=== PATIENT | female | born 1990 | race Caucasian/White ===

== ENCOUNTER → 2016-07-16 | Outpatient (CLI) | payer OTHER ==
[~2016-07-16] MED LIST: CHOLCAP5 PO; HYDR-5688 PO; ONDA4TAB10 SL; WARF-246 PO; WARF5TAB7 PO
[2016-07-16 17:25] LABS: BASO % 0.8 %; BASO ABS # 0.07 K/uL (0-0.2); COMPLETE YES; EOS % 3.1 %; HEMATOCRIT 43.8 % (37-47); IG% 0.1 %; LYMPH % 31.3 %; MEAN CELL VOLUME 86.1 fL (80-100); MEAN CORPUSCULAR HEMOGLOBIN 29.9 pg (25-34); MEAN CORPUSCULAR HGB CONC 34.7 g/dl (32-36); MEAN PLATELET VOLUME 12.8 fL (7.4-10.4); NEUT % 57.7 %; PLATELET COUNT 154 K/uL (130-400); RED BLOOD COUNT 5.09 M/uL (4.2-5.4); WHITE BLOOD COUNT 8.62 K/uL (4.8-10.8)
[2016-07-16 17:38] LABS: INR 2.1 (0.9-1.1); PROTHROMBIN TIME (PATIENT) 23.2 SECONDS (9.0-12.0)
== END | disposition home or self-care (01) ==
LOC: C.LABPVFM 14:42
PROVIDERS: ATTEND Family Medicine
DX: N92.0 Excessive and frequent menstruation with regular cycle (principal)

== ENCOUNTER 2016-07-22 20:21 | Emergency (ER) | payer OTHER ==
[~2016-07-22] VITALS: Ht 165.1 cm; Wt 92.3 kg
[2016-07-22 20:28] VITALS: TEMP 36.8; Ht 165.1 cm; Wt 92.3 kg
[2016-07-22] MEDS ORDERED: MoRPHine SULFATE 10 MG/ML CARP/VIAL IV STA (20:47)
[2016-07-22] MEDS ORDERED: ONDANSETRON INJ 2 MG/ML 2 ML VIAL IV STA (20:47)
[2016-07-22] MEDS ORDERED: SODIUM CHLORIDE 0.9% 1000ML 1,000 ML IV STA (20:47)
[2016-07-22] MEDS ORDERED: WARF-246 PO (20:54)
[2016-07-22] MEDS ORDERED: WARF5TAB7 PO (20:58)
[2016-07-22] MEDS ORDERED: CHOLCAP5 PO (21:06)
[2016-07-22] MEDS ORDERED: MoRPHine SULFATE 2 MG/ML CARP ONE (21:23)
[2016-07-22] MEDS ORDERED: MoRPHine SULFATE 4 MG/ML 1 ML CARP\\VIAL ONE (21:23)
[2016-07-22 21:34] LABS: BASO % 0.7 %; BASO ABS # 0.06 K/uL (0-0.2); COMPLETE YES; EOS % 4.9 %; HEMATOCRIT 42.2 % (37-47); IG% 0.2 %; LYMPH % 36.7 %; LYMPH ABS # 3.23 K/uL (1.2-3.4); MEAN CELL VOLUME 86.8 fL (80-100); MEAN CORPUSCULAR HEMOGLOBIN 30.9 pg (25-34); MEAN CORPUSCULAR HGB CONC 35.5 g/dl (32-36); MEAN PLATELET VOLUME 12.7 fL (7.4-10.4); MONO % 7.1 %; NEUT % 50.4 %; PLATELET COUNT 142 K/uL (130-400); RED BLOOD COUNT 4.86 M/uL (4.2-5.4); WHITE BLOOD COUNT 8.79 K/uL (4.8-10.8)
[2016-07-22 21:52] LABS: BUN/CREATININE RATIO 7.3 (10-20); CALCIUM 8.8 mg/dl (8.5-10.1); CREATININE 0.77 mg/dl (0.60-1.20)
[2016-07-22 21:54] LABS: MANUAL MICROSCOPIC REQUIRED? NO; REVIEW REQ? NO; URINE APPEARANCE CLEAR (CLEAR); URINE BILIRUBIN NEG (NEG); URINE COLOR YELLOW; URINE EPITHELIAL CELL AUTO >30 /lpf (0-5); URINE NITRITE NEG (NEG); URINE PH 8.5 (4.5-7.5); UROBILINOGEN NEG (NEG); ZZUR CULT IF INDIC CLEAN CATCH YES
[2016-07-22 21:55] LABS: ALB/GLOB RATIO 1.1 (0.9-2)
--- NOTE | 2016-07-22 22:20 | DIAGNOSTIC IMAGING REPORT ---
BILIARY ULTRASOUND CLINICAL HISTORY: Right upper quadrant pain and vomiting COMPARISON STUDY: The second 2012 FINDINGS: The pancreas appears sonographically normal. The liver appears sonographically normal. There is no right-sided hydronephrosis. The gallbladder appears sonographically normal. There is no ductal dilatation. The common bile duct measures 3 mm. IMPRESSION: Normal biliary ultrasound Electronically signed by: Bravo Carter M.D. 07/22/2016 10:18 PM Dictated Date/Time: 07/22/2016 10:17 PM
[2016-07-22] MEDS ORDERED: OPTIRAY 320 IV PRN (22:45)
[2016-07-22] MEDS ORDERED: ONDA4TAB10 SL (23:47)
--- NOTE | 2016-07-22 23:47 | EMERGENCY ROOM VISIT NOTE ---
History First contact with patient: 20:41 Chief Complaint: ABDOMINAL PAIN Stated Complaint: RUQ PAIN Nursing Triage Summary: Right abdominal pain with vomitting. Denies fever. Denies diarrhea. History of Present Illness The patient is a 26 year old female who presents to the Emergency Room with complaints of right-sided abdominal pain and vomiting. The patient reports that she has had right upper abdominal pain which began this morning. She has had 2 associated episodes of vomiting. She reports the pain has been gradually worsening throughout the day. She has had a few episodes of pain over the past few days, but did not have vomiting with these and states that the symptoms resolved without treatment. She rates her current discomfort in 01/30. She denies any alleviating or aggravating factors. She has not taken any medications for his symptoms. She denies any history of abdominal surgery. She denies chest pain, shortness of breath, changes in bowel movements, blood in her stools or urinary symptoms. Review of Systems A complete 10-point Review of Systems was discussed with the patient, with pertinent positives and negatives listed in the History of Present Illness. All remaining Review of Systems questions can be considered negative unless otherwise specified. Past Medical/Surgical History Medical Problems: (1) ACUTE BRONCHITIS (2) Acute bronchitis (3) Allergic contact dermatitis (4) Asthma (5) Chest pain (6) Foot pain, right Family History Cancer Diabetes mellitus FH: heart disease Social History Smoking Status: Current Every Day Smoker Alcohol Use: none Drug Use: none Marital Status: single Housing Status: lives with family Occupation Status: unemployed Current/Historical Medications Scheduled Cholecalciferol (Vitamin D3), 5,000 INTER.UNIT PO DAILY Ondasetron Odt (Zofran Odt), 4 MG SL Q6H Warfarin Sod (Jantoven), 10 MG PO 5XD Warfarin Sodium (Warfarin Sodium), 15 MG PO 2XWK Allergies Coded Allergies: No Known Allergies (Unverified , 01/03/16) Physical Exam Vital Signs Date Time Temp Pulse Resp B/P Pulse Ox O2 Delivery O2 Flow Rate FiO2 07/22/16 23:00 65 150/89 96 Room Air 07/22/16 20:28 36.8 93 16 125/74 97 Room Air Physical Exam VITALS: Vitals are noted on the nurse's note and reviewed by myself. Vital signs stable. GENERAL: This is a 26-year-old female, in no acute distress, nondiaphoretic, well-developed well-nourished. SKIN: Capillary reflex less than 2 seconds. HEENT: Normocephalic. PERRLA. EOMI. Nares patent. Mucous membranes moist. Neck is supple without nuchal rigidity. HEART: Regular rate and rhythm without murmurs gallops or rubs. LUNGS: Clear to auscultation bilaterally without wheezes, rales or rhonchi. ABDOMEN: Positive bowel sounds x 4. Moderate right upper quadrant tenderness to palpation. Negative Simmons sign. No guarding or rebound tenderness. NEURO: Patient was alert and oriented to person place and time. Medical Decision & Procedures ER Provider Diagnostic Interpretation: BILIARY ULTRASOUND FINDINGS: The pancreas appears sonographically normal. The liver appears sonographically normal. There is no right-sided hydronephrosis. The gallbladder appears sonographically normal. There is no ductal dilatation. The common bile duct measures 3 mm. IMPRESSION: Normal biliary ultrasound CT ABDOMEN and PELVIS: Collapsed follicle in the right ovary. Small amount of fluid in the pelvis. Unremarkable appendix. No colitis. No hydronephrosis or perinephric collections. Tiny left renal stone. No radiodense gallstones or pancreatitis. Radiologist: Billy Fiore M.D. Laboratory Results 07/22/16 21:10 Red Blood Count 4.86, Mean Corpuscular Volume 86.8, Mean Corpuscular Hemoglobin 30.9, Mean Corpuscular Hemoglobin Concent 35.5, Mean Platelet Volume 12.7, Neutrophils (%) (Auto) 50.4, Lymphocytes (%) (Auto) 36.7, Monocytes (%) (Auto) 7.1, Eosinophils (%) (Auto) 4.9, Basophils (%) (Auto) 0.7, Neutrophils # (Auto) 4.43, Lymphocytes # (Auto) 3.23, Monocytes # (Auto) 0.62, Eosinophils # (Auto) 0.43, Basophils # (Auto) 0.06 07/22/16 21:10 Test 07/22/16 21:10 07/22/16 21:25 White Blood Count 8.79 K/uL (4.8-10.8) Red Blood Count 4.86 M/uL (4.2-5.4) Hemoglobin 15.0 g/dL (12.0-16.0) Hematocrit 42.2 % (37-47) Mean Corpuscular Volume 86.8 fL (80-100) Mean Corpuscular Hemoglobin 30.9 pg (25-34) Mean Corpuscular Hemoglobin Concent 35.5 g/dl (32-36) Platelet Count 142 K/uL (130-400) Mean Platelet Volume 12.7 fL (7.4-10.4) Neutrophils (%) (Auto) 50.4 % Lymphocytes (%) (Auto) 36.7 % Monocytes (%) (Auto) 7.1 % Eosinophils (%) (Auto) 4.9 % Basophils (%) (Auto) 0.7 % Neutrophils # (Auto) 4.43 K/uL (1.4-6.5) Lymphocytes # (Auto) 3.23 K/uL (1.2-3.4) Monocytes # (Auto) 0.62 K/uL (0.11-0.59) Eosinophils # (Auto) 0.43 K/uL (0-0.5) Basophils # (Auto) 0.06 K/uL (0-0.2) RDW Standard Deviation 39.8 fL (36.4-46.3) RDW Coefficient of Variation 12.4 % (11.5-14.5) Immature Granulocyte % (Auto) 0.2 % Immature Granulocyte # (Auto) 0.02 K/uL (0.00-0.02) Anion Gap 11.0 mmol/L (3-11) Est Creatinine Clear Calc Drug Dose 126.5 ml/min Estimated GFR () 125.3 Estimated GFR (Non- 108.1 BUN/Creatinine Ratio 7.3 (10-20) Calcium Level 8.8 mg/dl (8.5-10.1) Total Bilirubin 0.2 mg/dl (0.2-1) Aspartate Amino Transf (AST/SGOT) 14 U/L (15-37) Alanine Aminotransferase (ALT/SGPT) 23 U/L (12-78) Alkaline Phosphatase 74 U/L (45-117) Total Protein 7.3 gm/dl (6.4-8.2) Albumin 3.8 gm/dl (3.4-5.0) Globulin 3.5 gm/dl (2.5-4.0) Albumin/Globulin Ratio 1.1 (0.9-2) Lipase 181 U/L (73-393) Urine Color YELLOW Urine Appearance CLEAR (CLEAR) Urine pH 8.5 (4.5-7.5) Urine Specific Pollock 1.010 (1.000-1.030) Urine Protein NEG (NEG) Urine Glucose (UA) NEG (NEG) Urine Ketones NEG (NEG) Urine Occult Blood NEG (NEG) Urine Nitrite NEG (NEG) Urine Bilirubin NEG (NEG) Urine Urobilinogen NEG (NEG) Urine Leukocyte Esterase MODERATE (NEG) Urine WBC (Auto) 5-10 /hpf (0-5) Urine RBC (Auto) 0-4 /hpf (0-4) Urine Hyaline Casts (Auto) 0 /lpf (0-5) Urine Epithelial Cells (Auto) >30 /lpf (0-5) Urine Bacteria (Auto) 1+ (NEG) Urine Test NEG (NEG) Medications Administered Medications (Trade) Dose Ordered Sig/Elma Route Start Time Stop Time Status Last Admin Dose Admin Sodium Chloride (Nss 1000ml) 1,000 ml @ 999 mls/hr Q1H1M STAT IV 07/22/16 20:47 07/22/16 21:47 DC 07/22/16 21:21 999 MLS/HR Ondansetron HCl (Zofran Inj) 4 mg NOW STAT IV 07/22/16 20:47 07/22/16 20:49 DC 07/22/16 21:29 4 MG Morphine Sulfate (MoRPHine SULFATE INJ) 4 mg STK-MED ONCE .ROUTE 07/22/16 21:23 07/22/16 21:24 DC 07/22/16 21:29 4 MG Morphine Sulfate (MoRPHine SULFATE INJ) 2 mg STK-MED ONCE .ROUTE 07/22/16 21:23 07/22/16 21:25 DC 07/22/16 21:29 2 MG Medical Decision Differential diagnosis includes cholecystitis, appendicitis, gastritis, colitis , among others. The patient was evaluated as above. Labs were drawn and IV access was obtained. Imaging studies were performed and read by radiology as above. The patient was medicated with 6 mg morphine IV, 4 mg Zofran IV and hydrated with 1 L saline solution. The patient was reassessed multiple times during their stay in the emergency department and remained in stable condition. The patient is a 26-year-old female who presents today complaining of right upper quadrant abdominal pain. Labs revealed no leukocytosis or concerning electrolyte abnormalities. Urinalysis was not suggestive of infection. Urine was negative. Right upper quadrant ultrasound was initially performed and was unremarkable. At that time, I did choose to order a CT of the patient's abdomen and pelvis to rule out a retrocecal appendicitis. This was read by stat read with no acute findings. I feel the patient's symptoms are likely secondary to a viral gastroenteritis. She was given a home pack and prescription of Zofran. She will follow-up with her primary care provider or will return for worsening symptoms. Based on the patient's presentation, lab results, and imaging studies, I feel the patient is stable for outpatient treatment. The patient's case was reviewed with Dr. Ugalde, ED attending physician, who agreed with my assessment and treatment plan. Discharge instructions were reviewed with the patient. The patient verbalized understanding of my assessment and treatment plan and was discharged home in good condition. Impression Primary Impression: Right upper quadrant abdominal pain Departure Information Dispostion Home / Self-Care Condition GOOD Prescriptions Ondasetron Odt (ZOFRAN ODT) 4 Mg Tab 4 MG SL Q6H for Nausea, #15 TAB Prov: Magalis Mckeon ., JAXON 07/22/16 Referrals Zonia Wilson C.R.N.P (PCP) Patient Instructions My [facility] Additional Instructions You have been treated in the Emergency Department for your Abdominal Pain. Laboratory results and imaging studies have ruled out any emergent causes for your abdominal pain which would warrant admission or surgery. You have been prescribed Zofran to be used for any nausea or vomiting. Take as prescribed. For pain control, you can use the following [id number] medicines (if >12 yo): - Regular strength (325mg/tab) Tylenol (acetaminophen) 2 tabs every 4-6 hours as needed. Do not exceed 12 tablets in a 24 hour period. Avoid taking more than 4 grams (4000 mg) of Tylenol per day. This includes any other sources of acetaminophen you may take on a regular basis. - Regular strength (200 mg/tab) Advil (ibuprofen) 1-2 tabs every 4-6 hours as needed. Do not exceed a dose of 3200 mg per day. Drink plenty of water and stay well hydrated. As with any trip to the Emergency Department, you should follow-up with your Primary Care Provider from today's visit. Return to the emergency department if your symptoms persist despite treatment plan outlined above or if the following symptoms occur: increased fevers, chills , worsening nausea/vomiting, blood in your stool or urine.
[2016-07-22 23:58] VITALS: BP 150/89; PULSE 65; O2SAT 96
[2016-07-23] MEDS ORDERED: ONDANSETRON HOME PACK 4MG OD TAB PO ONE
--- NOTE | 2016-07-23 06:31 | DIAGNOSTIC IMAGING REPORT ---
ABDOMEN AND PELVIS CT WITH IV CONTRAST CT DOSE: 766.25 mGy.cm HISTORY: Pain. Nausea. Right sided abd pain, vomiting TECHNIQUE: Multiaxial CT images of the abdomen and pelvis were performed following the use of intravenous contrast. COMPARISON STUDY: 11/23/2015 FINDINGS: The lung bases are clear. The liver, spleen, gallbladder, pancreas, kidneys, and adrenal glands are within normal limits. No bowel wall thickening or obstruction. The pelvic organs are unremarkable. No suspicious lytic or blastic osseous lesions. The appendix is normal. 2. Small right ovarian follicular cysts measuring no more than 1.5 cm. Trace fluid or free fluid within the pelvic cul-de-sac. IMPRESSION: Small right ovarian follicular cysts with a small of pelvic fluid. Otherwise negative study Electronically signed by: Keenan Gay M.D. 07/23/2016 6:30 AM Dictated Date/Time: 07/23/2016 6:27 AM
== END 2016-07-22 23:59 | disposition home or self-care (01) ==
LOC: C.EDB 20:22
DX: R10.11 Right upper quadrant pain (principal); R11.10 Vomiting, unspecified; J45.909 Unspecified asthma, uncomplicated; F17.200 Nicotine dependence, unspecified, uncomplicated; Z79.01 Long term (current) use of anticoagulants; Z79.899 Other long term (current) drug therapy

== ENCOUNTER 2016-08-10 08:14 | Emergency (ER) | payer OTHER ==
[~2016-08-10] VITALS: Ht 162.6 cm; Wt 90.0 kg
[~2016-08-10 08:14] MED LIST changes: -HYDR-5688 PO
[2016-08-10 08:21] VITALS: TEMP 36.8; Ht 162.6 cm; Wt 90.0 kg
[2016-08-10] MEDS ORDERED: ONDANSETRON INJ 2 MG/ML 2 ML VIAL IV PRN (08:30)
[2016-08-10] MEDS ORDERED: MoRPHine SULFATE 10 MG/ML CARP/VIAL IV PRN (08:30)
--- NOTE | 2016-08-10 08:37 | EMERGENCY ROOM VISIT NOTE ---
History Report prepared by Jeff: Neeta Garcia Under the Supervision of: Dr. Domingo Madison M.D. First contact with patient: 08:25 Chief Complaint: RIB PAIN Stated Complaint: LEFT RIB PAIN History of Present Illness The patient is a 26 year old female who presents to the Emergency Room with complaints of persistent left sided rib pain that began Friday. She currently rates her discomfort as a 10/10 in severity. The patient states that recently she has been battling a persistent cough. She states that Friday she had a bad coughing fit, noticed a pop and has had the persistent pain since. The patient states that she consulted her PCP and was just prescribed a cough medicine. She states that her pain is worsened with deep breathing. She denies any fever , chills, abdominal pain, or back pain. The patient reports normal appetite and fluid intake. She notes normal bowel movements and urination. She notes that she has a history of blood clots, noting that she is on Warfarin. The patient states that her last INR check was the beginning of July and she had a level of 2.8. Source of History: patient Onset: Friday Position: other (left sided rib pain) Symptom Intensity: 10/10 Timing: other (persistent) Modifying Factors (Worsening): breathing (deep) Associated Symptoms: + cough, No abdominal pain, No back pain, No chills, No fevers Review of Systems All systems have been listed, reviewed, and are negative other than those previously mentioned. Please see Additional Medical History Sheet. Past Medical & Surgical Medical Problems: (1) ACUTE BRONCHITIS (2) Acute bronchitis (3) Allergic contact dermatitis (4) Asthma (5) Chest pain (6) Foot pain, right Family History Cancer Diabetes mellitus FH: heart disease Social History Smoking Status: Current Every Day Smoker Alcohol Use: none Drug Use: none Marital Status: single Housing Status: lives with family Occupation Status: unemployed Current/Historical Medications Scheduled Cholecalciferol (Vitamin D3), 5,000 INTER.UNIT PO DAILY Warfarin Sod (Jantoven), 10 MG PO 5XD Warfarin Sodium (Warfarin Sodium), 15 MG PO 2XWK Scheduled PRN Hydrocodone/Acetaminophen 5MG/325MG ([place] 5MG/325MG), 1-2 TABLETS PO Q4 PRN for Pain Ondasetron Odt (Zofran Odt), 4 MG SL Q6H PRN for Nausea Allergies Coded Allergies: No Known Allergies (Unverified , 08/10/16) Physical Exam Vital Signs Date Time Temp Pulse Resp B/P Pulse Ox O2 Delivery O2 Flow Rate FiO2 08/10/16 10:47 68 18 142/81 98 08/10/16 10:10 98 08/10/16 09:34 69 16 98 Room Air 08/10/16 08:47 97 Room Air 08/10/16 08:21 36.8 77 20 114/79 97 Room Air Physical Exam GENERAL: Patient awake, alert, oriented x 3. Patient follows commands. Patient does not appear toxic. Patient is adequately hydrated and well- nourished. SKIN: No erythema, pallor, cyanosis or rash HEENT: Normal head, pupils equal, reactive to light and accommodation. Ears normal. Oral cavity and posterior pharynx appear normal. Neck: Without adenopathy, no neck vein distention. LUNGS: Clear to auscultation. No wheezes, no rales, no rhonchi. Increased pain with inspiration. HEART: No murmurs. No gallops. No rubs ABDOMEN: No masses, no rebound, no hepatomegaly or splenomegaly. EXTREMITIES: No signs of trauma or infection. NEUROLOGIC: Cranial nerves II-XII within normal limits. No gross motor sensory function deficits. Medical Decision & Procedures ER Provider Diagnostic Interpretation: X ray results are stated below per my interpretation and the radiologist's interpretation. LEFT RIBS UNILATERAL WITH PA CHEST CLINICAL HISTORY: Left anterior rib pain. Evaluate for fracture. COMPARISON STUDY: Chest CT December 28, [address] of the abdomen and pelvis July 22, 2016. FINDINGS: There is no pneumothorax or pleural effusion. Lungs are clear. Pulmonary vascularity is normal. Cardiomediastinal silhouette is normal. No acute left rib fractures are identified. IMPRESSION: No pneumothorax. No acute left rib fractures. Electronically signed by: Gaitto Patel M.D. 08/10/2016 9:25 AM Dictated Date/Time: 08/10/2016 9:22 AM Laboratory Results 08/10/16 09:00 08/10/16 09:00 Test 08/10/16 09:00 Red Blood Count 5.02 M/uL (4.2-5.4) Mean Corpuscular Volume 87.1 fL (80-100) Mean Corpuscular Hemoglobin 30.9 pg (25-34) Mean Corpuscular Hemoglobin Concent 35.5 g/dl (32-36) RDW Standard Deviation 39.4 fL (36.4-46.3) RDW Coefficient of Variation 12.4 % (11.5-14.5) Mean Platelet Volume 12.0 fL (7.4-10.4) Prothrombin Time 15.7 SECONDS (9.0-12.0) Prothromb Time International Ratio 1.4 (0.9-1.1) Anion Gap 11.0 mmol/L (3-11) Est Creatinine Clear Calc Drug Dose 145.0 ml/min Estimated GFR () 144.0 Estimated GFR (Non- 124.3 BUN/Creatinine Ratio 13.2 (10-20) Calcium Level 8.7 mg/dl (8.5-10.1) Laboratory results as stated above per my review. Medications Administered Medications (Trade) Dose Ordered Sig/Elma Route Start Time Stop Time Status Last Admin Dose Admin Morphine Sulfate (MoRPHine SULFATE INJ) 6 mg Q1H PRN IV 08/10/16 08:30 08/10/16 11:00 DC 08/10/16 09:02 6 MG Ondansetron HCl (Zofran Inj) 4 mg Q1HWA PRN IV 08/10/16 08:30 08/10/16 11:00 DC 08/10/16 09:01 4 MG ED Course 0826: Past medical records reviewed. The patient was evaluated in room A4B. A complete history and physical examination was performed. 0830: Ordered Zofran Inj 4 mg IV, Morphine Sulfate 6 mg IV. 1022: I reevaluated the patient and she is resting comfortably. I discussed the exam findings with her and I discussed the treatment plan. She verbalized complete understanding and agreement. She is ready to go home. Medical Decision Nurses notes reviewed. Medical history sheet reviewed. Differential diagnosis includes but is not limited to: left rib fracture, muscular pain, PE, pulmonary infarction. Labs, EKG and imaging were evaluated. Please see above. No fractures were seen. She does not have a pneumohemothorax. INR is subtherapeutic. Most likely the pain is secondary to a pulled muscle. The patient was given pain medication here and will be given a prescription for pain medication at home. [place] Drug Monitoring Program Search Results: patient reviewed within database, no issues identified Impression Primary Impression: Muscle strain of chest wall Scribe Attestation The scribe's documentation has been prepared under my direction and personally reviewed by me in its entirety. I confirm that the note above accurately reflects all work, treatment, procedures, and medical decision making performed by me. Departure Information Dispostion Home / Self-Care Prescriptions Hydrocodone/Acetaminophen 5MG/325MG ([place] 5MG/325MG) Tab 1-2 TABLETS PO Q4 Y for Pain, #20 TAB PRN PAIN Prov: Domingo Madison M.D. 08/10/16 Referrals No Doctor, Assigned (PCP) Forms HOME CARE DOCUMENTATION FORM, IMPORTANT VISIT INFORMATION, WORK / SCHOOL INSTRUCTIONS Patient Instructions My [facility] Additional Instructions Rest. 1-2 hydrocodone every 4 hours as needed for moderate to severe pain. Do not drive or operate machinery while taking hydrocodone. Take all of your current medications as prescribed including Coumadin. Your Coumadin level should be rechecked within the next 7 days.
[2016-08-10 08:47] VITALS: O2SAT 97
[2016-08-10] MEDS ORDERED: ONDA4TAB10 SL (09:04)
[2016-08-10 09:09] LABS: HEMATOCRIT 43.7 % (37-47); MEAN CELL VOLUME 87.1 fL (80-100); MEAN CORPUSCULAR HEMOGLOBIN 30.9 pg (25-34); MEAN CORPUSCULAR HGB CONC 35.5 g/dl (32-36); PLATELET COUNT 131 K/uL (130-400); RED BLOOD COUNT 5.02 M/uL (4.2-5.4)
[2016-08-10 09:22] LABS: BUN/CREATININE RATIO 13.2 (10-20); CALCIUM 8.7 mg/dl (8.5-10.1); CREATININE 0.65 mg/dl (0.60-1.20)
[2016-08-10 09:26] LABS: INR 1.4 (0.9-1.1); PROTHROMBIN TIME (PATIENT) 15.7 SECONDS (9.0-12.0)
--- NOTE | 2016-08-10 09:26 | DIAGNOSTIC IMAGING REPORT ---
LEFT RIBS UNILATERAL WITH PA CHEST CLINICAL HISTORY: Left anterior rib pain. Evaluate for fracture. COMPARISON STUDY: Chest CT December 28, [address] of the abdomen and pelvis July 22, 2016. FINDINGS: There is no pneumothorax or pleural effusion. Lungs are clear. Pulmonary vascularity is normal. Cardiomediastinal silhouette is normal. No acute left rib fractures are identified. IMPRESSION: No pneumothorax. No acute left rib fractures. Electronically signed by: Gatito Patel M.D. 08/10/2016 9:25 AM Dictated Date/Time: 08/10/2016 9:22 AM
[2016-08-10] MEDS ORDERED: HYDR-5688 PO (10:26)
[2016-08-10 10:47] VITALS: BP 142/81; PULSE 68; O2SAT 98
== END 2016-08-10 10:40 | disposition home or self-care (01) ==
LOC: C.EDB 08:15 → C.EDA 10:40
DX: S29.011A Strain of muscle and tendon of front wall of thorax, initial encounter (principal); X50.1XXA Overexertion from prolonged static or awkward postures, initial encounter; Z86.718 Personal history of other venous thrombosis and embolism; J45.909 Unspecified asthma, uncomplicated; Z79.01 Long term (current) use of anticoagulants; F17.210 Nicotine dependence, cigarettes, uncomplicated

== ENCOUNTER → 2016-08-21 | Outpatient (CLI) | payer OTHER ==
[~2016-08-21] MED LIST changes: +HYDR-5688 PO
== END | disposition home or self-care (01) ==
LOC: C.PAPS 09:57
PROVIDERS: ATTEND Obstetrics & Gynecology
DX: Z12.4 Encounter for screening for malignant neoplasm of cervix (principal)

== ENCOUNTER → 2016-10-25 | Outpatient (CLI) | payer OTHER ==
--- NOTE | 2016-10-25 09:21 | DIAGNOSTIC IMAGING REPORT ---
Venous Doppler right leg RIGHT VENOUS DOPP LOWER EXT UNILAT CLINICAL HISTORY: HX DVT; PAIN AND SWELLING Right pain. Edema. TECHNIQUE: Venous Doppler COMPARISON STUDY: 09/22/2015 FINDINGS: Mild scarring right popliteal vein. Current study shows no evidence for acute venous thrombosis. Venous flow characteristics are unremarkable. IMPRESSION: 1. Study is negative for deep venous thrombosis. 2. Mild chronic venous scarring right popliteal vein. Electronically signed by: Keenan Gay M.D. 10/25/2016 9:19 AM Dictated Date/Time: 10/25/2016 9:18 AM
== END | disposition home or self-care (01) ==
LOC: C.ULTRBC 07:58
PROVIDERS: ATTEND Nurse Practitioner
DX: M79.89 Other specified soft tissue disorders (principal); Z86.718 Personal history of other venous thrombosis and embolism

== ENCOUNTER 2017-02-13 12:09 | Emergency (ER) | payer OTHER ==
[~2017-02-13] VITALS: Ht 162.6 cm; Wt 90.0 kg
[~2017-02-13 12:09] MED LIST changes: -HYDR-5688 PO
[2017-02-13 12:12] VITALS: Ht 162.6 cm; Wt 90.0 kg
[2017-02-13] MEDS ORDERED: SODIUM CHLORIDE 0.9% 1000ML 1,000 ML IV STA (12:54)
[2017-02-13] MEDS ORDERED: MoRPHine SULFATE 4 MG/ML 1 ML CARP\\VIAL IV STA (12:54)
[2017-02-13] MEDS ORDERED: ONDANSETRON INJ 2 MG/ML 2 ML VIAL IV STA (12:54)
[2017-02-13 13:12] LABS: BASO % 0.6 %; BASO ABS # 0.07 K/uL (0-0.2); COMPLETE YES; EOS % 3.8 %; IG% 0.3 %; LYMPH % 24.6 %; LYMPH ABS # 2.67 K/uL (1.2-3.4); MEAN CORPUSCULAR HGB CONC 34.1 g/dl (32-36); MEAN PLATELET VOLUME 11.7 fL (7.4-10.4); NEUT % 62.7 %; PLATELET COUNT 157 K/uL (130-400); WHITE BLOOD COUNT 10.85 K/uL (4.8-10.8)
[2017-02-13 13:21] LABS: ALT/SGPT 60 U/L (12-78); BLOOD UREA NITROGEN 9 mg/dl (7-18); BUN/CREATININE RATIO 12.9 (10-20); CALCIUM 8.8 mg/dl (8.5-10.1); CARBON DIOXIDE 24 mmol/L (21-32); CHLORIDE 109 mmol/L (98-107); CREATININE 0.66 mg/dl (0.60-1.20); GLUCOSE 82 mg/dl (70-99); POTASSIUM 3.9 mmol/L (3.5-5.1); SODIUM 138 mmol/L (136-145)
[2017-02-13 13:24] LABS: ALKALINE PHOSPHATASE 74 U/L (45-117); AST/SGOT 30 U/L (15-37); PROTHROMBIN TIME (PATIENT) 21.9 SECONDS (9.0-12.0)
[2017-02-13 13:27] LABS: POINT OF CARE TROPONIN I < 0.030 ng/ml (0-0.045)
--- NOTE | 2017-02-13 13:54 | DIAGNOSTIC IMAGING REPORT ---
CHEST 2 VIEWS ROUTINE HISTORY: Atypical CHEST PAIN COMPARISON: No priors for comparison due to PACS downtime. FINDINGS: The lungs are clear. Cardiac silhouette is normal in size. No pleural effusions. No pneumothorax. IMPRESSION: No acute process. Electronically signed by: Howard Montague M.D. 02/13/2017 1:52 PM Dictated Date/Time: 02/13/2017 1:49 PM
[2017-02-13] MEDS ORDERED: OPTIRAY 320 IV PRN (14:30)
--- NOTE | 2017-02-13 15:46 | DIAGNOSTIC IMAGING REPORT ---
CT ANGIOGRAPHY OF THE CHEST, PULMONARY EMBOLUS PROTOCOL CLINICAL HISTORY: Chest pain. COMPARISON STUDY: Chest CT December 28, 2014 and chest radiograph performed earlier today. TECHNIQUE: Following IV administration of Optiray-320, helical axial images of the chest were obtained utilizing the pulmonary embolus protocol. Maximal intensity projections and sagittal and coronal reformats were viewed on an independent 3D workstation. IV contrast was administered without complication. A dose lowering technique was utilized adhering to the principles of ALARA. CT DOSE: 427.47 mGycm FINDINGS: No pulmonary emboli are identified. There is no evidence for thoracic aortic dissection. The size of the heart is normal. There is no pericardial effusion. No enlarged thoracic lymph nodes are present. Central airways are patent. No pneumothorax or pleural effusion is present. There is no consolidation to suggest pneumonia. Bony thorax and upper abdomen are unremarkable. IMPRESSION: 1. No pulmonary emboli identified. Segmental and subsegmental pulmonary arteries within the lower lobes suboptimally assessed due to respiratory motion. 2. No acute intrathoracic findings. Electronically signed by: Gatito Patel M.D. 02/13/2017 3:45 PM Dictated Date/Time: 02/13/2017 3:27 PM
[2017-02-13 16:36] VITALS: TEMP 36.6
[2017-02-13 16:45] VITALS: BP 135/80; PULSE 69; O2SAT 100
--- NOTE | 2017-02-13 23:05 | EMERGENCY ROOM VISIT NOTE ---
ED Visit Note First contact with patient: 12:41 Chief Complaint: Chest pain. History of Present Illness: Ms. Castaneda is a 27 year-old white female who ambulates into the ED accompany by male friend complaining of chest pain. Historically patient reports right lower leg DVT. She denies any previous coronary artery disease, family history of coronary artery disease and risk factors for heart disease. Additionally patient reports that she is currently on Coumadin therapy and last week her INR was subtherapeutic. Patient reports a acute onset of pain that started approximately 2.5 hours ago. Patient reports she was walking in her yard when she had acute onset of anterior chest pain. Since that time her pain has been constant. She places her discomfort over the midsternal area. She describes her pain as a sharp stabbing sensation. Her pain is constant. Her pain is radiating into her anterior neck bilaterally. She has not identified aggravating or alleviating factors related to the pain. She has not taken any medications for pain prior to arrival at the hospital. Currently she rates her discomfort 8/10. Associated with her pain she reports she feels like she cannot catch her breath. Patient denies fevers, chills, sweats, skin eruptions, skin color changes, upper respiratory tract symptoms, wheezing, cough shortness of breath, orthopnea , dependent edema, claudication, cramping, recent surgery/inactivity/extended travel, abdominal pain, nausea, vomiting, diarrhea, constipation, rectal bleeding, black/tarry stools, urinary symptoms, back/flank pain. Review of Systems: As noted above in history of present illness. All body systems were reviewed and found to be negative as noted above. Past Medical History: As previously noted, asthma, bronchitis, pneumonia, anxiety. Current Medications: Warfarin. Allergies to Medications: Patient denies. Social History: Patient is not employed; she lives with her fiance and feels safe in her home environment; she admits to smoking a half a pack of cigarettes per day; she denies tobacco use. Physical Examination: Vital Signs: Date Time Temp Pulse Resp B/P (MAP) Pulse Ox O2 Delivery O2 Flow Rate FiO2 02/13/17 16:45 69 18 135/80 100 Room Air 02/13/17 16:36 36.6 80 18 136/87 100 02/13/17 14:37 80 18 136/87 02/13/17 14:34 31 02/13/17 14:31 124/69 02/13/17 14:29 79 16 02/13/17 14:24 76 17 02/13/17 14:19 86 22 02/13/17 14:15 127/72 02/13/17 14:14 83 23 02/13/17 14:09 71 20 02/13/17 14:04 75 16 02/13/17 14:00 99/70 02/13/17 13:59 79 17 02/13/17 13:19 83 19 02/13/17 13:16 154/88 02/13/17 13:15 169/105 02/13/17 13:14 81 17 02/13/17 13:04 81 18 02/13/17 13:00 155/93 02/13/17 12:59 75 23 02/13/17 12:54 81 14 02/13/17 12:49 82 18 02/13/17 12:44 82 23 02/13/17 12:42 79 02/13/17 12:39 74 19 02/13/17 12:32 141/93 02/13/17 12:12 100 Room Air 02/13/17 12:12 36.6 90 20 133/81 100 Room Air GENERAL: 27-year-old female in mild to moderate distress due to pain, nontoxic- appearing, afebrile and hemodynamically stable. NEUROLOGICAL: Awake, alert and oriented to person, place and time. Answering questions appropriately and following commands. Normal gait. Good hand eye coordination. SKIN: Warm, dry and pink. No soft tissue eruptions or trauma noted. HEENT: Atraumatic and normocephalic. PERRLA. Sclera white and conjunctiva pink. Pharynx is nonerythematous or edematous. Speech normal. No lymphadenopathy. Trachea midline. No jugular venous distention. No carotid bruits. BACK: No tenderness over the bony spine. No CVA tenderness. THORAX: Lungs sounds are clear to auscultation and equal bilaterally with symmetrical chest wall. No wheezing, rales or rhonchi. Minimal tenderness over the anterior chest with compression. No crepitus, subcutaneous air or deformities noted. No increased respiratory effort or rate. HEART: Regular rate and rhythm. No gallops, rubs or murmurs are appreciated. No lifts, heaves or thrills. PMI is not displaced. ABDOMEN: Flat, soft and nontender. Positive bowel sounds in all quadrants. No guarding, rigidity or organomegaly. EXTREMITIES: Moves all extremities well on command and with purpose. All distal neurovascular statuses are intact and equal bilaterally. No dependent edema or calf tenderness/cords. ED Course: Patient is assessed as noted above. Patient's medication list was reviewed. Laboratory Testing: Test 02/13/17 12:30 02/13/17 13:10 Range/Units White Blood Count 10.85 4.8-10.8 K/uL Red Blood Count 5.00 4.2-5.4 M/uL Hemoglobin 15.0 12.0-16.0 g/dL Hematocrit 44.0 37-47 % Mean Corpuscular Volume 88.0 80-100 fL Mean Corpuscular Hemoglobin 30.0 25-34 pg Mean Corpuscular Hemoglobin Concent 34.1 32-36 g/dl Platelet Count 157 130-400 K/uL Mean Platelet Volume 11.7 7.4-10.4 fL Neutrophils (%) (Auto) 62.7 % Lymphocytes (%) (Auto) 24.6 % Monocytes (%) (Auto) 8.0 % Eosinophils (%) (Auto) 3.8 % Basophils (%) (Auto) 0.6 % Neutrophils # (Auto) 6.80 1.4-6.5 K/uL Lymphocytes # (Auto) 2.67 1.2-3.4 K/uL Monocytes # (Auto) 0.87 0.11-0.59 K/uL Eosinophils # (Auto) 0.41 0-0.5 K/uL Basophils # (Auto) 0.07 0-0.2 K/uL RDW Standard Deviation 40.1 36.4-46.3 fL RDW Coefficient of Variation 12.5 11.5-14.5 % Immature Granulocyte % (Auto) 0.3 % Immature Granulocyte # (Auto) 0.03 0.00-0.02 K/uL Prothrombin Time 21.9 9.0-12.0 SECONDS Prothromb Time International Ratio 2.0 0.9-1.1 Activated Partial Thromboplast Time 52.8 21.0-31.0 SECONDS Partial Thromboplastin Ratio 2.0 Sodium Level 138 136-145 mmol/L Potassium Level 3.9 3.5-5.1 mmol/L Chloride Level 109 98-107 mmol/L Carbon Dioxide Level 24 21-32 mmol/L Anion Gap 5.0 3-11 mmol/L Blood Urea Nitrogen 9 7-18 mg/dl Creatinine 0.66 0.60-1.20 mg/dl Est Creatinine Clear Calc Drug Dose 141.6 ml/min Estimated GFR () 142.3 Estimated GFR (Non- 122.8 BUN/Creatinine Ratio 12.9 10-20 Random Glucose 82 70-99 mg/dl Calcium Level 8.8 8.5-10.1 mg/dl Total Bilirubin 0.2 0.2-1 mg/dl Direct Bilirubin < 0.1 0-0.2 mg/dl Aspartate Amino Transf (AST/SGOT) 30 15-37 U/L Alanine Aminotransferase (ALT/SGPT) 60 12-78 U/L Alkaline Phosphatase 74 45-117 U/L Total Protein 7.5 6.4-8.2 gm/dl Albumin 3.7 3.4-5.0 gm/dl Lipase 191 73-393 U/L Bedside D-Dimer 99 0-450 ng/mlFEU Bedside Troponin I < 0.030 0-0.045 ng/ml Chest X-Rays: Were read by myself and the radiologist showing no acute infiltrates, effusions or pneumothorax. Normal heart silhouette and bony anatomy. No previous to compare. Chest CTA: Was reviewed by myself and read by the radiologist showing no pulmonary emboli or acute intrathoracic findings. EKG: Was read by myself and reviewed with Dr. Perez; shows normal sinus rhythm with a ventricular rate of 81 bpm. Right axial deviation. Normal complexes. No acute ST changes indicating ischemia, injury infarction. This was compared to her previous from December 2014 in no acute changes were noted. Patient was hydrated with normal saline and she received 4 mg of morphine IV for pain and 4 mg of Zofran IV. Patient was reassessed multiple times during her stay in the emergency department. Patient's case was reviewed with Dr. Perez; we agreed on diagnostic approach, treatment, disposition and plan. Patient was educated about today's findings and instructed on her treatment plan ; she verbalized understanding and agreement with this plan. Clinical Impression: Acute noncardiac chest pain. Decision-Making: Initially my differential diagnosis I considered acute coronary syndrome, thoracic aneurysm, pneumothorax, pneumonia, pulmonary embolus and other causes. Disposition: Patient discharged home in stable condition accompanied by her fiance; prior to departure she was reassessed and subjectively reported that she was pain and symptom-free. Plan: Patient was encouraged to continue her current medications as prescribed. Patient was encouraged use 650 mg of acetaminophen every 6 hours as needed for pain. Patient does report she has an upcoming appointment with her primary care or bladder on Friday and I encouraged her to keep that appointment. Patient was encouraged return ED for worsening/uncontrolled pain, fevers, return if shortness of breath, coughing up blood or any new/concerning symptoms.
== END 2017-02-13 16:44 | disposition home or self-care (01) ==
LOC: C.EDB 12:10 → C.EDC 16:44
DX: R07.89 Other chest pain (principal); Z86.718 Personal history of other venous thrombosis and embolism; Z79.01 Long term (current) use of anticoagulants; J45.909 Unspecified asthma, uncomplicated; Z87.01 Personal history of pneumonia (recurrent); F41.9 Anxiety disorder, unspecified; F17.210 Nicotine dependence, cigarettes, uncomplicated

== ENCOUNTER 2017-06-30 09:20 | Emergency (ER) | payer OTHER ==
[~2017-06-30] VITALS: Ht 167.6 cm; Wt 89.3 kg
[~2017-06-30 09:20] MED LIST changes: -CHOLCAP5 PO; -ONDA4TAB10 SL
[2017-06-30 09:27] VITALS: TEMP 37; Ht 167.6 cm; Wt 89.3 kg
[2017-06-30] MEDS ORDERED: ONDANSETRON INJ 2 MG/ML 2 ML VIAL IV STA (09:57)
[2017-06-30] MEDS ORDERED: SODIUM CHLORIDE 0.9% 500ML 500 ML IV STA (09:57)
[2017-06-30 10:56] LABS: BASO % 0.3 %; BASO ABS # 0.04 K/uL (0-0.2); EOS % 0.7 %; HEMATOCRIT 44.8 % (37-47); HEMOGLOBIN 15.7 g/dL (12.0-16.0); IG# 0.04 K/uL (0.00-0.02); LYMPH % 3.9 %; LYMPH ABS # 0.53 K/uL (1.2-3.4); MEAN CELL VOLUME 87.2 fL (80-100); MEAN CORPUSCULAR HEMOGLOBIN 30.5 pg (25-34); MEAN PLATELET VOLUME 11.6 fL (7.4-10.4); MONO % 3.8 %; MONO ABS # 0.52 K/uL (0.11-0.59); NEUT ABS # 12.31 K/uL (1.4-6.5); PLATELET COUNT 122 K/uL (130-400); RED CELL DISTRIBUTION WIDTH SD 41.7 fL (36.4-46.3); WHITE BLOOD COUNT 13.54 K/uL (4.8-10.8)
[2017-06-30 11:03] LABS: INR 2.6 (0.9-1.1)
--- NOTE | 2017-06-30 11:26 | DIAGNOSTIC IMAGING REPORT ---
HEAD WITHOUT CONTRAST (CT) CT DOSE: 614.27 mGy.cm HISTORY: Trauma. Mental status change. on coumadin hit head vomiting TECHNIQUE: Multiaxial CT images of the head were performed without the use of intravenous contrast. A dose lowering technique was utilized adhering to the principles of ALARA. Comparison: 01/27/2016 Findings: The paranasal sinuses and mastoid air cells are clear. The calvarium and skull base are intact. The ventricles and sulci are within normal limits. There is no mass, hematoma, midline shift, or acute infarct. Impression: No acute intracranial abnormality. The above report was generated using voice recognition software. It may contain grammatical, syntax or spelling errors. Electronically signed by: Keenan Gay M.D. 06/30/2017 11:24 AM Dictated Date/Time: 06/30/2017 11:23 AM
[2017-06-30 12:00] VITALS: BP 136/73; PULSE 71; O2SAT 98
[2017-06-30] MEDS ORDERED: ONDA4TAB46 PO (12:05)
--- NOTE | 2017-06-30 13:49 | EMERGENCY ROOM VISIT NOTE ---
History Report prepared by Jeff: Reid Abraham Under the Supervision of: Dr. Del Perez D.O. First contact with patient: 09:46 Chief Complaint: HEADACHE Stated Complaint: VOMITING AND HEADACHE History of Present Illness The patient is a 27 year old female who presents to the Emergency Room with complaints of a constant headache since last night. The patient states that last night she threw her head back and hit it on her night stand. She reports that since then she has been having a headache since then and has vomited 12-13 times since the incident. The patient states that prior to this episode she had no symptoms. She states that she is currently on Coumadin for a DVT, and her last INR was 1.7 on the 11 of June. She denies any other medical problems. Pt denies weakness, numbness, change in vision, fevers, chest pain, shortness of breath, diarrhea, pain with urination, and melena. No weakness or numbness in arms or legs. Source of History: patient Onset: last night Position: head Quality: ache Timing: constant Associated Symptoms: + vomiting, No weakness, No numbness Review of Systems See HPI for pertinent positives & negatives. A total of 10 systems reviewed and were otherwise negative. Past Medical & Surgical Medical Problems: (1) ACUTE BRONCHITIS (2) Acute bronchitis (3) Allergic contact dermatitis (4) Asthma (5) Chest pain (6) Foot pain, right Family History Cancer Diabetes mellitus FH: heart disease Social History Smoking Status: Current Every Day Smoker Alcohol Use: none Drug Use: none Marital Status: single Housing Status: lives with family Occupation Status: unemployed Current/Historical Medications Scheduled Warfarin Sod (Jantoven), 15 MG PO 4XWK Warfarin Sodium (Warfarin Sodium), 10 MG PO 3XWK Scheduled PRN Ondansetron Hcl (Zofran), 4 MG PO TID PRN for Nausea Allergies Coded Allergies: No Known Allergies (Unverified , 08/10/16) Physical Exam Vital Signs Date Time Temp Pulse Resp B/P (MAP) Pulse Ox O2 Delivery O2 Flow Rate FiO2 06/30/17 12:00 71 20 136/73 98 06/30/17 11:02 77 20 144/84 98 Room Air 06/30/17 09:27 37.0 91 18 118/69 97 Room Air Physical Exam GENERAL: alert, well appearing, well nourished, no distress, non-toxic HEAD: Contusion to the right posterior occiput. Normal cephalic EYE EXAM: normal conjunctiva, PERRL and EOM's grossly intact OROPHARYNX: no exudate, no erythema, lips, buccal mucosa, and tongue normal and mucous membranes are moist EARS: TMs clear b/l NECK: supple, no nuchal rigidity, no adenopathy, non-tender CHEST: stable to compression anteriorly and posteriorly LUNGS: clear to auscultation. Normal chest wall mechanics HEART: no murmurs, S1 normal and S2 normal ABDOMEN: abdomen soft, non-tender, normo-active bowel sounds, no masses, no rebound or guarding. PELVIS: stable to compression anteriorly and posteriorly BACK: Back is symmetrical on inspection and there is no deformity, no midline tenderness, no CVA tenderness. UPPER EXTREMITIES: full active and passive range of motion of all joints without tenderness to palpation LOWER EXTREMITIES: full active and passive range of motion of all joints without tenderness to palpation NEURO EXAM: Normal sensorium, cranial nerves II-XII intact, normal speech, no weakness of arms, no weakness of legs. No drift. Finger to nose intact. Sensation intact. GCS 15 Medical Decision & Procedures ER Provider Diagnostic Interpretation: Radiology results as stated below per my review and the radiologist's interpretation: HEAD WITHOUT CONTRAST (CT) CT DOSE: 614.27 mGy.cm HISTORY: Trauma. Mental status change. on coumadin hit head vomiting TECHNIQUE: Multiaxial CT images of the head were performed without the use of intravenous contrast. A dose lowering technique was utilized adhering to the principles of ALARA. Comparison: 01/27/2016 Findings: The paranasal sinuses and mastoid air cells are clear. The calvarium and skull base are intact. The ventricles and sulci are within normal limits. There is no mass, hematoma, midline shift, or acute infarct. Impression: No acute intracranial abnormality. The above report was generated using voice recognition software. It may contain grammatical, syntax or spelling errors. Electronically signed by: Keenan Gay M.D. 06/30/2017 11:24 AM Dictated Date/Time: 06/30/2017 11:23 AM Laboratory Results 06/30/17 10:30 Red Blood Count 5.14, Mean Corpuscular Volume 87.2, Mean Corpuscular Hemoglobin 30.5, Mean Corpuscular Hemoglobin Concent 35.0, Mean Platelet Volume 11.6, Neutrophils (%) (Auto) 91.0, Lymphocytes (%) (Auto) 3.9, Monocytes (%) (Auto) 3.8, Eosinophils (%) (Auto) 0.7, Basophils (%) (Auto) 0.3, Neutrophils # (Auto) 12.31, Lymphocytes # (Auto) 0.53, Monocytes # (Auto) 0.52, Eosinophils # (Auto) 0.10, Basophils # (Auto) 0.04 Test 06/30/17 10:30 White Blood Count 13.54 K/uL (4.8-10.8) Red Blood Count 5.14 M/uL (4.2-5.4) Hemoglobin 15.7 g/dL (12.0-16.0) Hematocrit 44.8 % (37-47) Mean Corpuscular Volume 87.2 fL (80-100) Mean Corpuscular Hemoglobin 30.5 pg (25-34) Mean Corpuscular Hemoglobin Concent 35.0 g/dl (32-36) Platelet Count 122 K/uL (130-400) Mean Platelet Volume 11.6 fL (7.4-10.4) Neutrophils (%) (Auto) 91.0 % Lymphocytes (%) (Auto) 3.9 % Monocytes (%) (Auto) 3.8 % Eosinophils (%) (Auto) 0.7 % Basophils (%) (Auto) 0.3 % Neutrophils # (Auto) 12.31 K/uL (1.4-6.5) Lymphocytes # (Auto) 0.53 K/uL (1.2-3.4) Monocytes # (Auto) 0.52 K/uL (0.11-0.59) Eosinophils # (Auto) 0.10 K/uL (0-0.5) Basophils # (Auto) 0.04 K/uL (0-0.2) RDW Standard Deviation 41.7 fL (36.4-46.3) RDW Coefficient of Variation 13.0 % (11.5-14.5) Immature Granulocyte % (Auto) 0.3 % Immature Granulocyte # (Auto) 0.04 K/uL (0.00-0.02) Prothrombin Time 27.0 SECONDS (9.0-12.0) Prothromb Time International Ratio 2.6 (0.9-1.1) Laboratory results per my review. Medications Administered Medications (Trade) Dose Ordered Sig/Elma Route Start Time Stop Time Status Last Admin Dose Admin Sodium Chloride 500 ml @ 999 mls/hr Q31M STAT IV 06/30/17 09:57 06/30/17 10:27 DC 06/30/17 10:46 999 MLS/HR Ondansetron HCl (Zofran Inj) 4 mg NOW STAT IV 06/30/17 09:57 06/30/17 09:59 DC 06/30/17 11:00 4 MG ED Course ED COURSE: Vital signs were reviewed and showed normal vitals The patients medical record was reviewed The above diagnostic studies were performed and reviewed. ED treatments and interventions as stated above. 0946: The patient was evaluated in room C2. A complete history and physical examination was performed. 0957: Zofran 4mg IV, Sodium Chloride 500 ml @ 999 mls/hr IV 1140: Upon reevaluation, the patient is feeling better.I discussed my findings with the patient and she understands and agrees with the treatment plan. Based on the patients age, coexisting illnesses, exam and lab findings the decision to treat as an outpatient was made. The patient remained stable while under my care. The patient appeared well at the time of discharge. Medical Decision Differential diagnoses include major intracranial, cervical, spinal, thoracic, abdominal, pelvic and neurologic injury. Fracture, contusion, sprain, strain, laceration, abrasions included as well. Patient is a 27-year-old female who presents to ER status post hitting her head last night and having intermittent nausea and vomiting throughout this morning. She notes she was fine when she hit her head off a coffee and table. She is no focal deficit. Completely neurologically intact. CT head is unremarkable. She has no cervical spine tenderness. CBC and INR were obtained. INR was therapeutic at 2.6. Patient was updated regards to her findings pressures discharged follow-up as an outpatient. She was given strict instructions in regards to posttraumatic bleeding while on Coumadin. Patient family were updated bedside. She is discharged follow-up with PCP as an outpatient. Head Trauma GCS Score: 15 Medication Reconcilliation Current Medication List: was personally reviewed by me Blood Pressure Screening Patient's blood pressure: Normal blood pressure Impression Primary Impression: Concussion Additional Impression: Headache Scribe Attestation The scribe's documentation has been prepared under my direction and personally reviewed by me in its entirety. I confirm that the note above accurately reflects all work, treatment, procedures, and medical decision making performed by me. Departure Information Dispostion Home / Self-Care Prescriptions Ondansetron Hcl (ZOFRAN) 4 Mg Tab 4 MG PO TID Y for Nausea, #20 TAB Prov: PerezDel, DO 06/30/17 Referrals No Doctor, Assigned (PCP) Forms HOME CARE DOCUMENTATION FORM, IMPORTANT VISIT INFORMATION Patient Instructions Concussion Alistair, My [facility] Additional Instructions Please follow up with your primary care doctor with in the next 24 hours. Any worsening of your symptoms, please return to the ED immediately. This includes any fevers greater than 100.4, worsening pain, chest pain, shortness breath, persistent nausea, vomiting, unable to eat or drink, or any other concerning signs or symptoms from your standpoint. No driving for the next 24 hours or until your symptoms resolved. Please take Tylenol or Motrin as needed for pain. Any worsening headache, weakness or numbness in your arms or legs, change in vision or any other concerning signs or symptoms from your standpoint please return to the ER immediately as you are on Coumadin and there is always a chance of delayed bleeding due to head trauma. Problem Qualifiers Primary Impression: Concussion Encounter type: initial encounter Loss of consciousness presence/duration: without LOC Qualified Codes: S06.0X0A - Concussion without loss of consciousness, initial encounter Additional Impression: Headache Headache type: unspecified Headache chronicity pattern: acute headache Intractability: not intractable Qualified Codes: R51 - Headache
== END 2017-06-30 12:11 | disposition home or self-care (01) ==
LOC: C.EDB 09:21 → C.EDC 12:11
DX: S06.0X0A Concussion without loss of consciousness, initial encounter (principal); I82.409 Acute embolism and thrombosis of unspecified deep veins of unspecified lower extremity; F17.200 Nicotine dependence, unspecified, uncomplicated; W22.09XA Striking against other stationary object, initial encounter; Z79.01 Long term (current) use of anticoagulants; Z80.9 Family history of malignant neoplasm, unspecified; Z83.3 Family history of diabetes mellitus; Z82.49 Family history of ischemic heart disease and other diseases of the circulatory system

== ENCOUNTER → 2017-09-08 | Outpatient (CLI) | payer OTHER ==
[~2017-09-08] MED LIST changes: +ONDA4TAB46 PO
[2017-09-08 17:47] LABS: BLOOD UREA NITROGEN 10 mg/dl (7-18); CALCIUM 8.6 mg/dl (8.5-10.1); CARBON DIOXIDE 26 mmol/L (21-32); CREATININE 0.73 mg/dl (0.60-1.20); GLUCOSE 80 mg/dl (70-99); POTASSIUM 3.9 mmol/L (3.5-5.1); SODIUM 138 mmol/L (136-145)
== END | disposition home or self-care (01) ==
LOC: C.LABPVFM 16:08
PROVIDERS: ATTEND Nurse Practitioner
DX: R11.0 Nausea (principal); R10.9 Unspecified abdominal pain; G47.00 Insomnia, unspecified

== ENCOUNTER → 2017-09-12 | Outpatient (CLI) | payer OTHER ==
[~2017-09-12] MED LIST changes: +FAMO20TA9 PO; +ONDA4TAB10 SL; +PRLSR20 PO
--- NOTE | 2017-09-12 08:07 | DIAGNOSTIC IMAGING REPORT ---
ABDOMINAL ULTRASOUND, RIGHT UPPER QUADRANT HISTORY: R11.0 [id number] generalized abdominal pain, acute [id number]. COMPARISON: Abdominal ultrasound 07/25/2012. FINDINGS: Pancreas: The pancreas demonstrates a normal echotexture. Liver: Unremarkable. Gallbladder: Multiple small gallstones completely filling the gallbladder. No gallbladder wall thickening. CBD: 4 mm. Right kidney: No hydronephrosis. IMPRESSION: Cholelithiasis. No gallbladder wall thickening. Electronically signed by: Howard Montague M.D. 09/12/2017 8:06 AM Dictated Date/Time: 09/12/2017 8:04 AM
== END | disposition home or self-care (01) ==
LOC: C.ULTRBC 07:47
PROVIDERS: ATTEND Nurse Practitioner
DX: R11.0 Nausea (principal); R10.9 Unspecified abdominal pain; K80.20 Calculus of gallbladder without cholecystitis without obstruction

== ENCOUNTER 2017-09-15 17:03 | Emergency (ER) | payer OTHER ==
[~2017-09-15] VITALS: Ht 162.6 cm; Wt 85.7 kg
[~2017-09-15 17:03] MED LIST changes: -FAMO20TA9 PO; -ONDA4TAB10 SL; -PRLSR20 PO
[2017-09-15 17:18] VITALS: TEMP 36.8; Ht 162.6 cm; Wt 85.7 kg
[2017-09-15] MEDS ORDERED: SODIUM CHLORIDE 0.9% 1000ML 2,000 ML IV STA (17:55)
[2017-09-15] MEDS ORDERED: ONDANSETRON INJ 2 MG/ML 2 ML VIAL IV STA (17:55)
--- NOTE | 2017-09-15 18:07 | EMERGENCY ROOM VISIT NOTE ---
History Report prepared by Jeff: Meri Aguirre Under the Supervision of: Dr. Miguel Angel John M.D. First contact with patient: 17:49 Chief Complaint: ABDOMINAL PAIN Stated Complaint: GALLBLADDER PAIN Nursing Triage Summary: Patient c/o abdominal pain for one month, had gallbladder US and showed stones. Increased pain. History of Present Illness The patient is a 27 year old female who presents to the Emergency Room with complaints of persistent right upper quadrant abdominal pain that began about a month and a half ago. She currently rates her pain a 7 out of 10 in severity. The patient reports that she saw her primary care physician one week ago, who recommended she have an ultrasound done which showed several gallstones. She notes that walking seems to reliever her symptoms, but bending over or picking up objects seems to worsen her discomfort. The patient states that she becomes nauseous every time she eats, noting she has not vomited but has mainly been eating crackers for the past several days. She notes that she has been taking Tylenol for her pain, which has not been helping relieve her symptoms. The patient has an upcoming surgery scheduled to remove the stones. She states that she takes Coumadin for a history of blood clots behind her right knee. The patient denies any chance of being , noting she is currently on her menstrual period. Source of History: patient Onset: about a month and a half ago Position: abdomen (RUQ) Quality: other (abdominal pain) Timing: other (persistent) Modifying Factors (Worsening): other (bending over or picking up objects) Modifying Factors (Relieving): movement (walking), other (Tylenol has not been relieving her symptoms) Associated Symptoms: + nausea, No vomiting Review of Systems See HPI for pertinent positives and negatives. A total of ten systems were reviewed and were otherwise negative. Past Medical & Surgical Medical Problems: (1) ACUTE BRONCHITIS (2) Acute bronchitis (3) Allergic contact dermatitis (4) Asthma (5) Chest pain (6) Foot pain, right Family History Cancer Diabetes mellitus FH: heart disease Social History Smoking Status: Current Every Day Smoker Alcohol Use: none Drug Use: none Marital Status: single Housing Status: lives with family Occupation Status: unemployed Current/Historical Medications Scheduled Famotidine (Pepcid), 20 MG PO BID Omeprazole (Prilosec), 20 MG PO BID Ondasetron Odt (Zofran Odt), 4 MG SL Q6H Warfarin Sod (Jantoven), 10 MG PO [id number] Warfarin Sodium (Warfarin Sodium), 15 MG PO WK Allergies Coded Allergies: No Known Allergies (Unverified , 08/10/16) Physical Exam Vital Signs Date Time Temp Pulse Resp B/P (MAP) Pulse Ox O2 Delivery O2 Flow Rate FiO2 09/15/17 20:23 20 109/66 97 09/15/17 18:51 73 20 110/73 98 Room Air 09/15/17 17:18 36.8 82 16 116/63 98 Room Air Physical Exam GENERAL: Awake, alert, in no acute distress HENT: Dry mucous membranes. Normocephalic, atraumatic. Oropharynx unremarkable. EYES: Normal conjunctiva. Sclera non-icteric. NECK: Supple. No nuchal rigidity. FROM. No JVD. RESPIRATORY: Clear to auscultation. CARDIAC: Regular rate, normal rhythm. Extremities warm and well perfused. Pulses equal. ABDOMEN: Mild right upper quadrant and epigastric tenderness. No peritoneal signs. No Simmons's sign. RECTAL: Deferred. MUSCULOSKELETAL: Chest examination reveals no tenderness. The back is symmetrical on inspection without obvious abnormality. There is no CVA tenderness to palpation. No joint edema. LOWER EXTREMITIES: Calves are equal size bilaterally and non-tender. No edema. No discoloration. NEURO: Normal sensorium. No sensory or motor deficits noted. SKIN: No rash or jaundice noted. Medical Decision & Procedures ER Provider Diagnostic Interpretation: Radiology results as stated below per my review and radiologist interpretation: BILIARY ULTRASOUND CLINICAL HISTORY: Right upper quadrant abdominal pain. Gallstones. COMPARISON STUDY: 09/12/2017 FINDINGS: The pancreas appears sonographically normal. No focal hepatic masses are visualized. There are multiple gallstones. There is no gallbladder wall thickening. There is no pericholecystic fluid. There is no ductal dilatation. The common bile duct measures 4 mm. There is no right-sided hydronephrosis. IMPRESSION: Cholelithiasis. No evidence of ductal dilatation. Electronically signed by: Bravo Carter M.D. 09/15/2017 7:43 PM Dictated Date/Time: 09/15/2017 7:42 PM Laboratory Results 09/15/17 18:10 Red Blood Count 4.78, Mean Corpuscular Volume 86.0, Mean Corpuscular Hemoglobin 30.3, Mean Corpuscular Hemoglobin Concent 35.3, Mean Platelet Volume 12.0, Neutrophils (%) (Auto) 66.5, Lymphocytes (%) (Auto) 23.1, Monocytes (%) (Auto) 6.3, Eosinophils (%) (Auto) 3.0, Basophils (%) (Auto) 0.9, Neutrophils # (Auto) 7.26, Lymphocytes # (Auto) 2.53, Monocytes # (Auto) 0.69, Eosinophils # (Auto) 0.33, Basophils # (Auto) 0.10 09/15/17 18:10 Test 09/15/17 18:10 White Blood Count 10.93 K/uL (4.8-10.8) Red Blood Count 4.78 M/uL (4.2-5.4) Hemoglobin 14.5 g/dL (12.0-16.0) Hematocrit 41.1 % (37-47) Mean Corpuscular Volume 86.0 fL (80-100) Mean Corpuscular Hemoglobin 30.3 pg (25-34) Mean Corpuscular Hemoglobin Concent 35.3 g/dl (32-36) Platelet Count 155 K/uL (130-400) Mean Platelet Volume 12.0 fL (7.4-10.4) Neutrophils (%) (Auto) 66.5 % Lymphocytes (%) (Auto) 23.1 % Monocytes (%) (Auto) 6.3 % Eosinophils (%) (Auto) 3.0 % Basophils (%) (Auto) 0.9 % Neutrophils # (Auto) 7.26 K/uL (1.4-6.5) Lymphocytes # (Auto) 2.53 K/uL (1.2-3.4) Monocytes # (Auto) 0.69 K/uL (0.11-0.59) Eosinophils # (Auto) 0.33 K/uL (0-0.5) Basophils # (Auto) 0.10 K/uL (0-0.2) RDW Standard Deviation 41.0 fL (36.4-46.3) RDW Coefficient of Variation 12.9 % (11.5-14.5) Immature Granulocyte % (Auto) 0.2 % Immature Granulocyte # (Auto) 0.02 K/uL (0.00-0.02) Prothrombin Time 22.1 SECONDS (9.0-12.0) Prothromb Time International Ratio 2.1 (0.9-1.1) Urine Color YELLOW Urine Appearance CLOUDY (CLEAR) Urine pH 7.0 (4.5-7.5) Urine Specific [place] 1.018 (1.000-1.030) Urine Protein 1+ (NEG) Urine Glucose (UA) NEG (NEG) Urine Ketones NEG (NEG) Urine Occult Blood 3+ (NEG) Urine Nitrite NEG (NEG) Urine Bilirubin NEG (NEG) Urine Urobilinogen NEG (NEG) Urine Leukocyte Esterase MODERATE (NEG) Urine WBC (Auto) >30 /hpf (0-5) Urine RBC (Auto) 0-4 /hpf (0-4) Urine Hyaline Casts (Auto) 1-5 /lpf (0-5) Urine Epithelial Cells (Auto) >30 /lpf (0-5) Urine Bacteria (Auto) 1+ (NEG) Urine Yeast (Auto) (NONE PRSENT) Anion Gap 5.0 mmol/L (3-11) Est Creatinine Clear Calc Drug Dose 132.1 ml/min Estimated GFR () 140.2 Estimated GFR (Non- 121.0 BUN/Creatinine Ratio 10.9 (10-20) Calcium Level 8.6 mg/dl (8.5-10.1) Total Bilirubin 0.2 mg/dl (0.2-1) Direct Bilirubin mg/dl (0-0.2) Aspartate Amino Transf (AST/SGOT) 16 U/L (15-37) Alanine Aminotransferase (ALT/SGPT) 23 U/L (12-78) Alkaline Phosphatase 81 U/L (45-117) Total Protein 7.7 gm/dl (6.4-8.2) Albumin 3.6 gm/dl (3.4-5.0) Lipase 213 U/L (73-393) Chemistry Specimen Hemolysis Laboratory results reviewed by me Medications Administered Medications (Trade) Dose Ordered Sig/Elma Route Start Time Stop Time Status Last Admin Dose Admin Sodium Chloride 2,000 ml @ 999 mls/hr Q2H1M STAT IV 09/15/17 17:55 09/15/17 19:55 DC 09/15/17 18:47 999 MLS/HR Ondansetron HCl (Zofran Inj) 4 mg NOW STAT IV 09/15/17 17:55 09/15/17 17:59 DC 09/15/17 18:46 4 MG Fentanyl Citrate (Fentanyl Inj) 50 mcg NOW STAT IV 09/15/17 18:08 09/15/17 18:09 DC 09/15/17 18:47 50 MCG Famotidine (Pepcid Tab) 20 mg NOW ONCE PO 09/15/17 20:00 09/15/17 20:01 DC 09/15/17 20:23 20 MG Al Hydroxide/Mg Hydroxide (Maalox Susp) 30 ml STK-MED ONCE .ROUTE 09/15/17 20:20 09/15/17 20:21 DC 09/15/17 20:22 30 ML Lidocaine HCl (Viscous Lidocaine 2% Soln) 20 ml STK-MED ONCE .ROUTE 09/15/17 20:20 09/15/17 20:21 DC 09/15/17 20:23 20 ML ED Course 1751: The patient was evaluated in room B9. A complete history and physical exam was performed. 2005: I reevaluated the patient, who was resting. Discussed results and discharge instructions: she verbalized understanding and agreement. The patient is ready for discharge. Medical Decision I reviewed the patient's past medical history, medications, and the nursing notes as described above. Differential diagnosis: Etiologies such as appendicitis, diverticulitis, PUD, biliary pathology, UTI, pancreatitis, obstruction, mesenteric ischemia, aortic pathology, infections, inflammatory bowel disease, renal colic, as well as others were entertained. The patient is a 27-year-old woman with a past medical history of chronic abdominal pain over the past month having had a outpatient ultrasound demonstrating cholelithiasis several days ago presents emergency department with persistent of her pain per hpi. On arrival the patient is no acute distress, afebrile stable vital signs. Labs unremarkable including WBC within normal limits. Chemistry unremarkable with no obstructive pattern. Formal ultrasound unchanged from prior without any evidence of cholecystitis or ductal dilatation. She feeling improved after IV fluids, analgesics, antiemetics. Unclear if some of the patient's symptoms may be partially due to a gastritis or peptic ulcer given the constant nature of her pain. Given Pepcid and GI cocktail. Will trial Pepcid in addition to her home omeprazole to see if her sx improve. Otherwise, the patient has no evidence of infection or obstruction no indication for emergent surgical surgical consultation at this time. She does have an appointment early in September with Dr. York. She was instructed to contact his office to see if she can get a earlier appointment for evaluation. Findings and plan for follow-up reviewed with patient. Patient agreeable and d/c'd per discharge instructions. Medication Reconcilliation Current Medication List: was personally reviewed by me Blood Pressure Screening Patient's blood pressure: Normal blood pressure Blood pressure disposition: Did not require urgent referral Impression Primary Impression: Cholelithiases Scribe Attestation The scribe's documentation has been prepared under my direction and personally reviewed by me in its entirety. I confirm that the note above accurately reflects all work, treatment, procedures, and medical decision making performed by me. Departure Information Dispostion Home / Self-Care Prescriptions Ondasetron Odt (ZOFRAN ODT) 4 Mg Tab 4 MG SL Q6H for Nausea, #10 TAB Prov: Miguel Angel John M.D. 09/15/17 Famotidine (PEPCID) 20 Mg Tab 20 MG PO BID for 7 Days, #14 TAB Prov: Miguel Angel John M.D. 09/15/17 Referrals Zonia Wilson C.R.N.P (PCP) James YorkODot Forms HOME CARE DOCUMENTATION FORM, IMPORTANT VISIT INFORMATION Patient Instructions ED Gallstone W Biliary Colic, ED Gastritis, My [facility] Additional Instructions Please follow up by contacting your surgeon's (Dr. York) office tomorrow to see if you can been seen with an earlier appointment for re-evaluation. Otherwise, your exam, lab results, and ultrasound did not show signs of an emergent condition at this time. Acetaminophen for pain and fevers as needed. Continue your omeprazole and add Pepcid for additional acid reduction for possible gastritis component to your pain. Zofran as needed for nausea. Drink plenty of fluids to ensure hydration. Return to the emergency department for worsening symptoms as described in the accompanying instructions.
[2017-09-15] MEDS ORDERED: FENTANYL CITRATE INJ 50 MCG/1 ML 2 ML VIAL IV STA (18:08)
[2017-09-15 18:39] LABS: BASO % 0.9 %; EOS ABS # 0.33 K/uL (0-0.5); HEMATOCRIT 41.1 % (37-47); HEMOGLOBIN 14.5 g/dL (12.0-16.0); IG# 0.02 K/uL (0.00-0.02); LYMPH % 23.1 %; LYMPH ABS # 2.53 K/uL (1.2-3.4); MEAN CORPUSCULAR HEMOGLOBIN 30.3 pg (25-34); MEAN CORPUSCULAR HGB CONC 35.3 g/dl (32-36); MONO % 6.3 %; MONO ABS # 0.69 K/uL (0.11-0.59); NEUT % 66.5 %; NEUT ABS # 7.26 K/uL (1.4-6.5); PLATELET COUNT 155 K/uL (130-400); RED CELL DISTRIBUTION WIDTH CV 12.9 % (11.5-14.5); WHITE BLOOD COUNT 10.93 K/uL (4.8-10.8)
[2017-09-15 18:47] LABS: INR 2.1 (0.9-1.1)
[2017-09-15 18:51] VITALS: PULSE 73
[2017-09-15 19:14] LABS: ALBUMIN 3.6 gm/dl (3.4-5.0); CALCIUM 8.6 mg/dl (8.5-10.1); CREATININE 0.69 mg/dl (0.60-1.20); POTASSIUM 4.4 mmol/L (3.5-5.1); TOTAL PROTEIN 7.7 gm/dl (6.4-8.2)
[2017-09-15] MEDS ORDERED: PRLSR20 PO (19:14)
--- NOTE | 2017-09-15 19:44 | DIAGNOSTIC IMAGING REPORT ---
BILIARY ULTRASOUND CLINICAL HISTORY: Right upper quadrant abdominal pain. Gallstones. COMPARISON STUDY: 09/12/2017 FINDINGS: The pancreas appears sonographically normal. No focal hepatic masses are visualized. There are multiple gallstones. There is no gallbladder wall thickening. There is no pericholecystic fluid. There is no ductal dilatation. The common bile duct measures 4 mm. There is no right-sided hydronephrosis. IMPRESSION: Cholelithiasis. No evidence of ductal dilatation. Electronically signed by: Bravo Carter M.D. 09/15/2017 7:43 PM Dictated Date/Time: 09/15/2017 7:42 PM
[2017-09-15] MEDS ORDERED: GI COCKTAIL PO STA (19:48)
[2017-09-15] MEDS ORDERED: FAMOTIDINE 20 MG TAB PO ONE (20:00)
[2017-09-15] MEDS ORDERED: FAMO20TA9 PO (20:04)
[2017-09-15] MEDS ORDERED: ONDA4TAB10 SL (20:05)
[2017-09-15] MEDS ORDERED: ALUMINUM/MAGNESIUM SUSP 30 ML UDC ONE (20:20)
[2017-09-15] MEDS ORDERED: LIDOCAINE HCL 2% VISC SOLN 20 ML UDC ONE (20:20)
[2017-09-15 20:23] VITALS: BP 109/66; O2SAT 97
== END 2017-09-15 20:33 | disposition home or self-care (01) ==
LOC: C.EDB 17:04
DX: K80.20 Calculus of gallbladder without cholecystitis without obstruction (principal); Z79.01 Long term (current) use of anticoagulants; Z86.2 Personal history of diseases of the blood and blood-forming organs and certain disorders involving the immune mechanism; J45.909 Unspecified asthma, uncomplicated; Z83.3 Family history of diabetes mellitus; Z82.49 Family history of ischemic heart disease and other diseases of the circulatory system; Z87.891 Personal history of nicotine dependence

== ENCOUNTER 2018-02-09 13:08 | Emergency (ER) | payer OTHER ==
[~2018-02-09 13:08] MED LIST changes: +HYDR-5688 PO; -ONDA4TAB46 PO; -WARF-246 PO
[2018-02-09 13:12] VITALS: TEMP 36.5; Ht 162.6 cm
[2018-02-09] MEDS ORDERED: ACETAMINOPHEN 325 MG TAB PO STA (13:22)
[2018-02-09] MEDS ORDERED: TRAMADOL HCL 50 MG TAB PO STA (13:22)
--- NOTE | 2018-02-09 13:33 | EMERGENCY ROOM VISIT NOTE ---
History Report prepared by Jeff: James Sadler Under the Supervision of: Dr. Joshua Myers M.D. First contact with patient: 13:15 Chief Complaint: LEG PAIN,LEG INJURY Stated Complaint: RIGHT LEG PAIN History of Present Illness The patient is a 28 year old female with a history of DVT who presents to the Emergency Room with complaints of worsening right leg pain beginning yesterday. She states the pain is most noticeable in her thigh, and has been worsening greatly since this morning. She reports that she took Tylenol with no improvement, and notes she has been keeping her leg elevated. She notes bruising around the knee cap. The patient states that she takes Coumadin and last had her INR checked at the beginning of the month. She denies SOB. Source of History: patient Onset: yesterday Position: leg (right) Timing: worsening Modifying Factors (Relieving): other (no improvement with Tylenol) Associated Symptoms: No SOB Note: bruising around knee cap Review of Systems See HPI for pertinent positives and negatives. A total of ten systems were reviewed and were otherwise negative. Past Medical & Surgical Medical Problems: (1) Acute bronchitis (2) ACUTE BRONCHITIS (3) Allergic contact dermatitis (4) Asthma (5) Chest pain (6) DVT (deep venous thrombosis) (7) Foot pain, right Family History Cancer Diabetes mellitus FH: heart disease Social History Smoking Status: Current Every Day Smoker Alcohol Use: none Drug Use: none Marital Status: single Housing Status: lives with family Occupation Status: unemployed Current/Historical Medications Scheduled Warfarin Sod (Jantoven), 10 MG PO DAILY Allergies Coded Allergies: No Known Allergies (Unverified , 02/09/18) Physical Exam Vital Signs Date Time Temp Pulse Resp B/P (MAP) Pulse Ox O2 Delivery O2 Flow Rate FiO2 02/09/18 14:48 71 16 136/83 98 Room Air 02/09/18 13:12 36.5 85 16 119/87 99 Room Air Physical Exam GENERAL: Awake, alert, NAD. Appears older than stated age. Edentulous. HENT: Normocephalic, atraumatic. EYES: Normal conjunctiva. Sclera non-icteric. PERRL. No anisocoria. NECK: Supple. No nuchal rigidity. FROM. RESPIRATORY: CTAB, no rhonchi, wheezing, crackles CARDIAC: RRR, no MRG ABDOMEN: Soft, NTND, BS+ MSK: No chest wall TTP, no LE edema. Negative Homans's sign. Primary thigh pain. No calf pain. NVI distally with pedal pulses. NEURO: GCS 15, CN 2-12 intact, moves all 4s on command SKIN: No rash or jaundice noted. Medical Decision & Procedures ER Provider Diagnostic Interpretation: Radiology results as stated below per my review and radiologist interpretation: ULTRASOUND RIGHT LOWER EXTREMITY VENOUS CLINICAL HISTORY: Follow-up lower extremity deep venous thrombosis. COMPARISON STUDY: Right lower extremity venous ultrasound dated 10/25/2016. TECHNIQUE: Real-time, grayscale, and color Doppler sonography of the deep veins of the right lower extremity was performed from the inguinal crease to the calf. Compression and augmentation were utilized. FINDINGS: There is nonocclusive and chronic appearing deep venous thrombosis identified in the right popliteal vein. This is similar to the 10/25/2016 examination. The common femoral and superficial femoral veins are patent and normally compressible. The greater saphenous vein and the profunda femoris vein at the junction with the common femoral vein are clear. The visualized calf veins are patent. IMPRESSION: 1. There is nonocclusive and chronic appearing deep venous thrombosis identified in the right popliteal vein. This is similar in appearance to previous. 2. The remaining deep veins of the right lower extremity are clear. Electronically signed by: Francisco J Gutierrez M.D. 02/09/2018 2:26 PM Dictated Date/Time: 02/09/2018 2:25 PM Laboratory Results 02/09/18 13:50 Red Blood Count 4.91, Mean Corpuscular Volume 85.5, Mean Corpuscular Hemoglobin 30.3, Mean Corpuscular Hemoglobin Concent 35.5, Mean Platelet Volume 12.0, Neutrophils (%) (Auto) 62.7, Lymphocytes (%) (Auto) 25.1, Monocytes (%) (Auto) 6.7, Eosinophils (%) (Auto) 4.2, Basophils (%) (Auto) 0.9, Neutrophils # (Auto) 4.76, Lymphocytes # (Auto) 1.91, Monocytes # (Auto) 0.51, Eosinophils # (Auto) 0.32, Basophils # (Auto) 0.07 02/09/18 13:50 Test 02/09/18 13:50 02/09/18 14:37 White Blood Count 7.60 K/uL (4.8-10.8) Red Blood Count 4.91 M/uL (4.2-5.4) Hemoglobin 14.9 g/dL (12.0-16.0) Hematocrit 42.0 % (37-47) Mean Corpuscular Volume 85.5 fL (80-100) Mean Corpuscular Hemoglobin 30.3 pg (25-34) Mean Corpuscular Hemoglobin Concent 35.5 g/dl (32-36) Platelet Count 152 K/uL (130-400) Mean Platelet Volume 12.0 fL (7.4-10.4) Neutrophils (%) (Auto) 62.7 % Lymphocytes (%) (Auto) 25.1 % Monocytes (%) (Auto) 6.7 % Eosinophils (%) (Auto) 4.2 % Basophils (%) (Auto) 0.9 % Neutrophils # (Auto) 4.76 K/uL (1.4-6.5) Lymphocytes # (Auto) 1.91 K/uL (1.2-3.4) Monocytes # (Auto) 0.51 K/uL (0.11-0.59) Eosinophils # (Auto) 0.32 K/uL (0-0.5) Basophils # (Auto) 0.07 K/uL (0-0.2) RDW Standard Deviation 39.5 fL (36.4-46.3) RDW Coefficient of Variation 12.6 % (11.5-14.5) Immature Granulocyte % (Auto) 0.4 % Immature Granulocyte # (Auto) 0.03 K/uL (0.00-0.02) Anion Gap 8.0 mmol/L (3-11) Estimated GFR () 136.2 Estimated GFR (Non- 117.6 BUN/Creatinine Ratio 10.9 (10-20) Calcium Level 8.9 mg/dl (8.5-10.1) Prothrombin Time 19.9 SECONDS (9.0-12.0) Prothromb Time International Ratio 1.9 (0.9-1.1) Laboratory results reviewed by me Medications Administered Medications (Trade) Dose Ordered Sig/Elma Route Start Time Stop Time Status Last Admin Dose Admin Tramadol HCl (Ultram Tab) 50 mg NOW STAT PO 02/09/18 13:22 02/09/18 13:24 DC 02/09/18 13:31 50 MG Acetaminophen (Tylenol Tab) 650 mg NOW STAT PO 02/09/18 13:22 02/09/18 13:24 DC 02/09/18 13:31 650 MG ED Course 1318: The patient was evaluated in room A2. A complete history and physical exam was performed. 1440: I reevaluated the patient. Discussed results and discharge instructions: she verbalized understanding and agreement. The patient is ready for discharge. Medical Decision Nursing notes reviewed. Ancillary studies and prior records reviewed. The patient is a 28 year old female with a history of DVT who presents to the Emergency Room with complaints of worsening right leg pain beginning yesterday. Differential diagnosis: Etiologies such as DVT, musculoskeletal, infection, joint effusion, trauma, lymphedema, idiopathic, CHF, as well as others were entertained. Patient was seen and evaluated the bedside. Patient was complaining some right lower extremity pain. Is been ongoing the patient has taken Tylenol without relief. Patient does not appear to have any overt swelling or overlying skin changes. Patient denies any recent trauma. Patient states that she does take her Coumadin last count was approximately 1.7 for her INR. Patient did have right lower extremity ultrasound obtained and patient was given medication for pain control. No plain films were obtained at this point time as the patient does not have any obvious deformity no history of trauma and is neurovascularly intact. Patient's ultrasound does show a nonocclusive DVT which is likely chronic in nature. This is fairly unchanged from prior. The patient has normal temperatures do not believe this is an arterial issue. The patient's pain improved with heat. I did discuss this may be some spasm. Patient was told to bear weight as tolerated and consider some light exercises and stretching. Patient was also told to follow-up PCP if she has persistent symptoms. Patient' s INR was 1.9. Patient was given strict follow-up, discharge, and return precautions. All questions were answered. Patient was deemed suitable for outpatient follow-up at this time. Patient agreed with the plan of care and was safely discharged home. Medication Reconcilliation Current Medication List: was personally reviewed by me Blood Pressure Screening Patient's blood pressure: Normal blood pressure Blood pressure disposition: Did not require urgent referral Impression Primary Impression: Leg pain, right Additional Impressions: DVT (deep venous thrombosis) Encounter for smoking cessation counseling Scribe Attestation The scribe's documentation has been prepared under my direction and personally reviewed by me in its entirety. I confirm that the note above accurately reflects all work, treatment, procedures, and medical decision making performed by me. Departure Information Dispostion Home / Self-Care Referrals Zonia Wilson C.R.N.P (PCP) Forms HOME CARE DOCUMENTATION FORM, IMPORTANT VISIT INFORMATION Patient Instructions ED Muscle Pain Leg Cramps, ED RICE, ED Smoking Cessation, My [facility] Additional Instructions Please return to the emergency department if you have worsening or recurrent symptoms not amenable to at-home treatment. Please call for a follow-up appointment with her primary care physician. Please take your medications as prescribed. If you have other concerns and/or complaints please feel free to also call your primary care physician's office or return the ED for further evaluation, management, and treatment. You may take tylenol 650 mg every 6 hours as needed for pain/fever unless told by your physician to not take it or have liver problems. Take your medications as prescribed. Your INR was 1.9. Please consider smoking cessation. You may apply moist heat and/or ice to the area. He may consider topicals such as BenGay, Biofreeze, or icy hot. If you do have persistent symptoms you may consider obtaining a referral for physical therapy. You have been examined and treated today on an emergency basis only. This is not a substitute for, or an effort to provide, complete comprehensive medical care. It is impossible to recognize and treat all injuries or illnesses in a single emergency department visit. It is therefore important that you follow up closely with [facility], your PCP, and/or your specialist(s). Call as soon as possible for an appointment. Thank you for your time and consideration. I look forward to speaking with you again soon. Please don't hesitate to call us if you have any questions. Problem Qualifiers Additional Impressions: DVT (deep venous thrombosis) DVT location: lower extremity Affected thrombotic vein of extremity: popliteal Chronicity: chronic Laterality: right Qualified Codes: I82.531 - Chronic embolism and thrombosis of right popliteal vein
[2018-02-09 14:06] LABS: BASO % 0.9 %; BASO ABS # 0.07 K/uL (0-0.2); EOS % 4.2 %; EOS ABS # 0.32 K/uL (0-0.5); HEMOGLOBIN 14.9 g/dL (12.0-16.0); IG# 0.03 K/uL (0.00-0.02); LYMPH % 25.1 %; LYMPH ABS # 1.91 K/uL (1.2-3.4); MEAN CELL VOLUME 85.5 fL (80-100); MEAN CORPUSCULAR HEMOGLOBIN 30.3 pg (25-34); MEAN CORPUSCULAR HGB CONC 35.5 g/dl (32-36); MONO % 6.7 %; MONO ABS # 0.51 K/uL (0.11-0.59); NEUT % 62.7 %; NEUT ABS # 4.76 K/uL (1.4-6.5); PLATELET COUNT 152 K/uL (130-400); RED CELL DISTRIBUTION WIDTH CV 12.6 % (11.5-14.5); RED CELL DISTRIBUTION WIDTH SD 39.5 fL (36.4-46.3)
[2018-02-09 14:26] LABS: BLOOD UREA NITROGEN 8 mg/dl (7-18); CALCIUM 8.9 mg/dl (8.5-10.1); CARBON DIOXIDE 22 mmol/L (21-32); CREATININE 0.71 mg/dl (0.60-1.20); GLUCOSE 94 mg/dl (70-99); POTASSIUM 3.9 mmol/L (3.5-5.1); SODIUM 138 mmol/L (136-145)
--- NOTE | 2018-02-09 14:28 | DIAGNOSTIC IMAGING REPORT ---
ULTRASOUND RIGHT LOWER EXTREMITY VENOUS CLINICAL HISTORY: Follow-up lower extremity deep venous thrombosis. COMPARISON STUDY: Right lower extremity venous ultrasound dated 10/25/2016. TECHNIQUE: Real-time, grayscale, and color Doppler sonography of the deep veins of the right lower extremity was performed from the inguinal crease to the calf. Compression and augmentation were utilized. FINDINGS: There is nonocclusive and chronic appearing deep venous thrombosis identified in the right popliteal vein. This is similar to the 10/25/2016 examination. The common femoral and superficial femoral veins are patent and normally compressible. The greater saphenous vein and the profunda femoris vein at the junction with the common femoral vein are clear. The visualized calf veins are patent. IMPRESSION: 1. There is nonocclusive and chronic appearing deep venous thrombosis identified in the right popliteal vein. This is similar in appearance to previous. 2. The remaining deep veins of the right lower extremity are clear. Electronically signed by: Francisco J Gutierrez M.D. 02/09/2018 2:26 PM Dictated Date/Time: 02/09/2018 2:25 PM
[2018-02-09 14:48] VITALS: BP 136/83; PULSE 71; O2SAT 98
[2018-02-09 15:00] LABS: INR 1.9 (0.9-1.1)
== END 2018-02-09 15:15 | disposition home or self-care (01) ==
LOC: C.EDB 13:09 → C.EDA 15:15
DX: M79.651 Pain in right thigh (principal); I82.531 Chronic embolism and thrombosis of right popliteal vein; J45.909 Unspecified asthma, uncomplicated; F17.200 Nicotine dependence, unspecified, uncomplicated; Z86.718 Personal history of other venous thrombosis and embolism; Z79.01 Long term (current) use of anticoagulants; Z71.6 Tobacco abuse counseling